=== PATIENT | female | born 1980 | race African-American/Black ===

== ENCOUNTER 2022-03-06 20:22 | Emergency (ER) | payer OTHER ==
[~2022-03-06] VITALS: Ht 165.1 cm; Wt 90.5 kg
[2022-03-06 21:47] VITALS: BP 190/114
== END 2022-03-07 02:37 | disposition left against medical advice (07) ==
LOC: ER 20:22
DX: Z53.21 Procedure and treatment not carried out due to patient leaving prior to being seen by health care provider (principal)